=== PATIENT | male | born 1980 | race Asian ===

== ENCOUNTER 2020-02-04 00:43 | Emergency (ER) | payer OTHER ==
[~2020-02-04] VITALS: Ht 175.3 cm; Wt 83.9 kg
[2020-02-04 01:01] VITALS: BP 166/128
--- NOTE | 2020-02-05 22:57 | NUR ---
RECEIVED CALL FROM LAB REGARDING COVID TEST. PT NEGATIVE.
== END 2020-02-04 02:02 | disposition home or self-care (01) ==
LOC: ER 00:47
DX: Z03.818 Encounter for observation for suspected exposure to other biological agents ruled out (principal)
CPT/HCPCS: 99283; C9803; U0003

== ENCOUNTER 2020-02-12 00:47 | Emergency (ER) | payer OTHER ==
[~2020-02-12] VITALS: Ht 175.3 cm; Wt 85.7 kg
[2020-02-12 00:49] VITALS: BP 111/65
== END 2020-02-12 01:06 | disposition home or self-care (01) ==
LOC: ER 00:50
DX: Z11.59 Encounter for screening for other viral diseases (principal)
CPT/HCPCS: 99283; C9803; U0003

== ENCOUNTER 2020-02-26 01:03 | Emergency (ER) | payer OTHER ==
[~2020-02-26] VITALS: Ht 175.3 cm; Wt 85.7 kg
[2020-02-26 01:11] VITALS: BP 139/88
--- NOTE | 2020-02-26 02:25 | NUR ---
COVID SWAB SENT TO LAB
== END 2020-02-26 01:11 | disposition home or self-care (01) ==
LOC: ER 01:04
DX: Z03.818 Encounter for observation for suspected exposure to other biological agents ruled out (principal)
CPT/HCPCS: 99283; C9803; U0003

== ENCOUNTER 2020-03-04 02:45 | Emergency (ER) | payer OTHER ==
[~2020-03-04] VITALS: Ht 175.3 cm; Wt 85.7 kg
[2020-03-04 02:45] VITALS: BP 132/64
--- NOTE | 2020-03-04 02:55 | NUR ---
Patient discharged to home in stable condition. Written and verbal after care instructions given. Patient verbalizes understanding of instruction.
--- NOTE | 2020-03-04 02:55 | NUR ---
CERVANTES VIRUS SWAB COLLECTED AND SENT TO LAB.
== END 2020-03-04 02:56 | disposition home or self-care (01) ==
LOC: ER 02:45
DX: Z11.59 Encounter for screening for other viral diseases (principal)
CPT/HCPCS: 99283; C9803; U0003

== ENCOUNTER 2020-03-12 00:56 | Emergency (ER) | payer OTHER ==
[~2020-03-12] VITALS: Ht 175.3 cm; Wt 85.7 kg
[2020-03-12 00:58] VITALS: BP 119/62
--- NOTE | 2020-03-12 01:04 | NUR ---
COVID SWAB COLLECTED AND SENT TO LAB
== END 2020-03-12 01:10 | disposition home or self-care (01) ==
LOC: ER 00:56
DX: Z03.818 Encounter for observation for suspected exposure to other biological agents ruled out (principal)
CPT/HCPCS: 99283; C9803; U0003

== ENCOUNTER 2020-03-18 00:39 | Emergency (ER) | payer OTHER ==
[~2020-03-18] VITALS: Ht 175.3 cm; Wt 85.7 kg
[2020-03-18 00:42] VITALS: BP 141/85
--- NOTE | 2020-03-18 01:03 | NUR ---
COVID TEST SENT TO LAB
== END 2020-03-18 01:03 | disposition home or self-care (01) ==
LOC: ER 00:40
DX: R03.0 Elevated blood-pressure reading, without diagnosis of hypertension (principal)
CPT/HCPCS: 99283; C9803; U0003

== ENCOUNTER 2020-04-01 01:23 | Emergency (ER) | payer OTHER ==
[~2020-04-01] VITALS: Ht 175.3 cm; Wt 85.7 kg
[2020-04-01 01:26] VITALS: BP 138/88
--- NOTE | 2020-04-01 01:50 | NUR ---
COVID SWAB DONE AND SENT TO LAB.
== END 2020-04-01 02:15 | disposition home or self-care (01) ==
LOC: ER 01:25
DX: Z20.828 Contact with and (suspected) exposure to other viral communicable diseases (principal)
CPT/HCPCS: 99283; C9803; U0003

== ENCOUNTER 2020-04-30 02:26 | Emergency (ER) | payer OTHER | END 2020-04-30 02:53 | disposition home or self-care (01) | DX: Z20.828 Contact with and (suspected) exposure to other viral communicable diseases (principal) | CPT/HCPCS: 99283; C9803; U0003 ==

== ENCOUNTER 2020-05-07 01:30 | Emergency (ER) | payer OTHER ==
[~2020-05-07] VITALS: Ht 175.3 cm; Wt 85.7 kg
[2020-05-07 01:31] VITALS: BP 135/61
== END 2020-05-07 02:45 | disposition home or self-care (01) ==
LOC: ER 01:31
DX: Z20.828 Contact with and (suspected) exposure to other viral communicable diseases (principal)
CPT/HCPCS: 99283; C9803; U0003

== ENCOUNTER 2020-05-13 00:24 | Emergency (ER) | payer OTHER ==
[~2020-05-13] VITALS: Ht 175.3 cm; Wt 85.7 kg
[2020-05-13 00:31] VITALS: BP 132/61
== END 2020-05-13 01:25 | disposition home or self-care (01) ==
LOC: ER 00:30
DX: Z20.828 Contact with and (suspected) exposure to other viral communicable diseases (principal)
CPT/HCPCS: 99283; C9803; U0003

== ENCOUNTER 2020-05-20 01:01 | Emergency (ER) | payer OTHER ==
[~2020-05-20] VITALS: Ht 175.3 cm; Wt 85.7 kg
[2020-05-20 01:06] VITALS: BP 128/74
== END 2020-05-20 01:17 | disposition home or self-care (01) ==
LOC: ER 01:02
DX: Z20.828 Contact with and (suspected) exposure to other viral communicable diseases (principal)
CPT/HCPCS: 99283; C9803; U0003

== ENCOUNTER 2020-05-27 00:39 | Emergency (ER) | payer OTHER ==
[~2020-05-27] VITALS: Ht 175.3 cm; Wt 85.7 kg
[2020-05-27 00:40] VITALS: BP 132/64
--- NOTE | 2020-05-27 00:54 | NUR ---
covid swab sent to lab
== END 2020-05-27 00:55 | disposition home or self-care (01) ==
LOC: ER 00:39
DX: Z20.828 Contact with and (suspected) exposure to other viral communicable diseases (principal)
CPT/HCPCS: 99283; C9803; U0003

== ENCOUNTER 2020-06-09 22:57 | Emergency (ER) | payer OTHER ==
[~2020-06-09] VITALS: Ht 175.3 cm; Wt 85.7 kg
[2020-06-09 23:04] VITALS: BP 128/81
--- NOTE | 2020-06-10 20:54 | NUR ---
LAB CALLED REGARDING NEGATIVE COVID RESULT.
== END 2020-06-09 23:15 | disposition home or self-care (01) ==
LOC: ER 22:59
DX: Z20.828 Contact with and (suspected) exposure to other viral communicable diseases (principal)
CPT/HCPCS: 99283; C9803; U0003

== ENCOUNTER 2020-06-17 23:30 | Emergency (ER) | payer OTHER ==
[~2020-06-17] VITALS: Ht 170.2 cm; Wt 84.8 kg
[2020-06-17 23:32] VITALS: BP 122/72
== END 2020-06-18 00:23 | disposition home or self-care (01) ==
LOC: ER 23:31
DX: Z20.828 Contact with and (suspected) exposure to other viral communicable diseases (principal)
CPT/HCPCS: 99283; C9803; U0003

== ENCOUNTER 2020-06-24 02:36 | Emergency (ER) | payer OTHER ==
[~2020-06-24] VITALS: Ht 170.2 cm; Wt 84.8 kg
[2020-06-24 02:38] VITALS: BP 138/79
== END 2020-06-24 02:51 | disposition home or self-care (01) ==
LOC: ER 02:37
DX: Z20.828 Contact with and (suspected) exposure to other viral communicable diseases (principal)
CPT/HCPCS: 99283; C9803; U0003

== ENCOUNTER 2020-07-01 02:01 | Emergency (ER) | payer OTHER ==
[~2020-07-01] VITALS: Ht 170.2 cm; Wt 84.8 kg
[2020-07-01 02:01] VITALS: BP 132/65
== END 2020-07-01 02:28 | disposition home or self-care (01) ==
LOC: ER 02:02
DX: Z20.828 Contact with and (suspected) exposure to other viral communicable diseases (principal)
CPT/HCPCS: 99283; C9803; U0003

== ENCOUNTER 2020-07-08 00:17 | Emergency (ER) | payer OTHER ==
[~2020-07-08] VITALS: Ht 170.2 cm; Wt 84.8 kg
[2020-07-08 00:19] VITALS: BP 128/64
== END 2020-07-08 00:43 | disposition home or self-care (01) ==
LOC: ER 00:19
DX: Z20.828 Contact with and (suspected) exposure to other viral communicable diseases (principal)
CPT/HCPCS: 99283; C9803; U0003

== ENCOUNTER 2020-07-16 02:15 | Emergency (ER) | payer OTHER ==
[~2020-07-16] VITALS: Ht 170.2 cm; Wt 84.8 kg
[2020-07-16 02:20] VITALS: BP 128/84
--- NOTE | 2020-07-16 02:29 | NUR ---
Patient discharged to home in stable condition. Written and verbal after care instructions given. Patient verbalizes understanding of instruction. pt. ambulatory with a steady gait
== END 2020-07-16 02:30 | disposition home or self-care (01) ==
LOC: ER 02:15
DX: Z20.828 Contact with and (suspected) exposure to other viral communicable diseases (principal)
CPT/HCPCS: 99283; C9803; U0003

== ENCOUNTER 2020-07-22 04:07 | Emergency (ER) | payer OTHER ==
[~2020-07-22] VITALS: Ht 175.3 cm; Wt 86.2 kg
[2020-07-22 04:15] VITALS: BP 131/75
--- NOTE | 2020-07-22 22:39 | NUR ---
LAB CALLED REGARDING NEGATIVE COVID RESULT
== END 2020-07-22 04:18 | disposition home or self-care (01) ==
LOC: ER 04:11
DX: Z20.828 Contact with and (suspected) exposure to other viral communicable diseases (principal)
CPT/HCPCS: 99283; C9803; U0003

== ENCOUNTER 2020-07-28 01:23 | Emergency (ER) | payer OTHER ==
[~2020-07-28] VITALS: Ht 175.3 cm; Wt 86.2 kg
[2020-07-28 01:27] VITALS: BP 128/79
--- NOTE | 2020-07-28 01:46 | NUR ---
COVID SWAB SAMPLE COLLECTED AND SENT TO THE LAB.
== END 2020-07-28 01:52 | disposition home or self-care (01) ==
LOC: ER 01:27
DX: Z20.828 Contact with and (suspected) exposure to other viral communicable diseases (principal)
CPT/HCPCS: 99283; C9803; U0003

== ENCOUNTER 2020-07-30 02:57 | Emergency (ER) | payer OTHER ==
[~2020-07-30] VITALS: Ht 175.3 cm; Wt 86.2 kg
[2020-07-30 03:01] VITALS: BP 121/63
== END 2020-07-30 03:47 | disposition home or self-care (01) ==
LOC: ER 03:02
DX: Z20.828 Contact with and (suspected) exposure to other viral communicable diseases (principal)
CPT/HCPCS: 99283; C9803; U0003

== ENCOUNTER 2020-08-04 01:37 | Emergency (ER) | payer OTHER ==
[~2020-08-04] VITALS: Ht 175.3 cm; Wt 86.2 kg
[2020-08-04 01:44] VITALS: BP 137/80
== END 2020-08-04 01:58 | disposition home or self-care (01) ==
LOC: ER 01:50
DX: Z20.828 Contact with and (suspected) exposure to other viral communicable diseases (principal)
CPT/HCPCS: 99283; C9803; U0003

== ENCOUNTER 2020-08-06 00:01 | Emergency (ER) | payer OTHER ==
[~2020-08-06] VITALS: Ht 175.3 cm; Wt 86.2 kg
[2020-08-06 00:06] VITALS: BP 133/84
== END 2020-08-06 00:33 | disposition home or self-care (01) ==
LOC: ER 00:08
DX: Z20.828 Contact with and (suspected) exposure to other viral communicable diseases (principal)
CPT/HCPCS: 99283; C9803; U0003

== ENCOUNTER 2020-08-11 05:26 | Emergency (ER) | payer OTHER ==
[~2020-08-11] VITALS: Ht 175.3 cm; Wt 86.2 kg
[2020-08-11 05:30] VITALS: BP 118/77
== END 2020-08-11 05:47 | disposition home or self-care (01) ==
LOC: ER 05:27
DX: Z20.828 Contact with and (suspected) exposure to other viral communicable diseases (principal)
CPT/HCPCS: 99283; C9803; U0003

== ENCOUNTER 2020-08-13 01:13 | Emergency (ER) | payer OTHER ==
[~2020-08-13] VITALS: Ht 175.3 cm; Wt 86.2 kg
[2020-08-13 01:16] VITALS: BP 132/64
== END 2020-08-13 01:33 | disposition home or self-care (01) ==
LOC: ER 01:17
DX: Z20.822 Contact with and (suspected) exposure to COVID-19 (principal)
CPT/HCPCS: 99283; C9803; U0003

== ENCOUNTER 2020-08-18 03:12 | Emergency (ER) | payer OTHER ==
[~2020-08-18] VITALS: Ht 170.2 cm; Wt 86.2 kg
[2020-08-18 03:14] VITALS: BP 119/68
== END 2020-08-18 03:36 | disposition home or self-care (01) ==
LOC: ER 03:17
DX: Z20.822 Contact with and (suspected) exposure to COVID-19 (principal)
CPT/HCPCS: 99283; C9803; U0003

== ENCOUNTER 2020-08-20 01:26 | Emergency (ER) | payer OTHER ==
[~2020-08-20] VITALS: Ht 170.2 cm; Wt 86.2 kg
[2020-08-20 01:29] VITALS: BP 124/65
== END 2020-08-20 01:49 | disposition home or self-care (01) ==
LOC: ER 01:30
DX: Z20.822 Contact with and (suspected) exposure to COVID-19 (principal)
CPT/HCPCS: 99283; C9803; U0003

== ENCOUNTER 2020-08-25 00:55 | Emergency (ER) | payer OTHER ==
[~2020-08-25] VITALS: Ht 175.3 cm; Wt 86.2 kg
[2020-08-25 00:55] VITALS: BP 122/65
== END 2020-08-25 01:31 | disposition home or self-care (01) ==
LOC: ER 01:07
DX: Z20.822 Contact with and (suspected) exposure to COVID-19 (principal)
CPT/HCPCS: 99283; C9803; U0003

== ENCOUNTER 2020-08-26 23:47 | Emergency (ER) | payer OTHER ==
[~2020-08-26] VITALS: Ht 175.3 cm; Wt 86.2 kg
[2020-08-27] VITALS: BP 134/67
== END 2020-08-27 00:25 | disposition home or self-care (01) ==
LOC: ER 23:51
DX: Z20.822 Contact with and (suspected) exposure to COVID-19 (principal)
CPT/HCPCS: 99283; C9803; U0003

== ENCOUNTER 2020-09-01 01:08 | Emergency (ER) | payer OTHER ==
[~2020-09-01] VITALS: Ht 162.6 cm; Wt 67.6 kg
[2020-09-01 01:08] VITALS: BP 124/71
== END 2020-09-01 01:51 | disposition home or self-care (01) ==
LOC: ER 01:13
DX: Z20.822 Contact with and (suspected) exposure to COVID-19 (principal)
CPT/HCPCS: 99283; C9803; U0003

== ENCOUNTER 2020-09-08 02:36 | Emergency (ER) | payer OTHER ==
[~2020-09-08] VITALS: Ht 175.3 cm; Wt 86.2 kg
[2020-09-08 02:36] VITALS: BP 131/75
== END 2020-09-08 03:12 | disposition home or self-care (01) ==
LOC: ER 02:39
DX: Z20.822 Contact with and (suspected) exposure to COVID-19 (principal)
CPT/HCPCS: 99283; C9803; U0003

== ENCOUNTER 2020-09-10 00:36 | Emergency (ER) | payer OTHER ==
[~2020-09-10] VITALS: Ht 177.8 cm; Wt 74.4 kg
[2020-09-10 00:39] VITALS: BP 118/72
== END 2020-09-10 01:42 | disposition home or self-care (01) ==
LOC: ER 00:41
DX: Z20.822 Contact with and (suspected) exposure to COVID-19 (principal)
CPT/HCPCS: 99283; C9803; U0003

== ENCOUNTER 2020-09-16 00:39 | Emergency (ER) | payer OTHER ==
[~2020-09-16] VITALS: Ht 175.3 cm; Wt 86.2 kg
[2020-09-16 00:44] VITALS: BP 129/88
== END 2020-09-16 01:17 | disposition home or self-care (01) ==
LOC: ER 00:44
DX: Z20.822 Contact with and (suspected) exposure to COVID-19 (principal)
CPT/HCPCS: 99283; C9803; U0003

== ENCOUNTER 2020-09-22 01:26 | Emergency (ER) | payer OTHER ==
[~2020-09-22] VITALS: Ht 175.3 cm; Wt 86.2 kg
[2020-09-22 01:26] VITALS: BP 131/75
== END 2020-09-22 04:52 | disposition home or self-care (01) ==
LOC: ER 01:30
DX: Z20.822 Contact with and (suspected) exposure to COVID-19 (principal)
CPT/HCPCS: 99283; C9803; U0003

== ENCOUNTER 2020-09-24 00:31 | Emergency (ER) | payer OTHER ==
[~2020-09-24] VITALS: Ht 175.3 cm; Wt 86.2 kg
[2020-09-24 00:35] VITALS: BP 125/67
== END 2020-09-24 01:19 | disposition home or self-care (01) ==
LOC: ER 00:37
DX: Z20.822 Contact with and (suspected) exposure to COVID-19 (principal)
CPT/HCPCS: 99283; C9803; U0003

== ENCOUNTER 2020-09-29 00:36 | Emergency (ER) | payer OTHER ==
[~2020-09-29] VITALS: Ht 175.3 cm; Wt 86.2 kg
[2020-09-29 00:40] VITALS: BP 122/82
== END 2020-09-29 01:15 | disposition home or self-care (01) ==
LOC: ER 00:41
DX: Z20.822 Contact with and (suspected) exposure to COVID-19 (principal)
CPT/HCPCS: 99283; C9803; U0003

== ENCOUNTER 2020-10-07 01:05 | Emergency (ER) | payer OTHER ==
[~2020-10-07] VITALS: Ht 175.3 cm; Wt 87.1 kg
[2020-10-07 01:21] VITALS: BP 121/71
== END 2020-10-07 02:04 | disposition home or self-care (01) ==
LOC: ER 01:14
DX: Z20.822 Contact with and (suspected) exposure to COVID-19 (principal)
CPT/HCPCS: 99283; C9803; U0003

== ENCOUNTER 2020-10-13 00:36 | Emergency (ER) | payer OTHER ==
[~2020-10-13] VITALS: Ht 175.3 cm; Wt 87.1 kg
[2020-10-13 00:36] VITALS: BP 121/68
== END 2020-10-13 00:45 | disposition home or self-care (01) ==
LOC: ER 00:39
DX: Z20.822 Contact with and (suspected) exposure to COVID-19 (principal)
CPT/HCPCS: 99283; C9803; U0003

== ENCOUNTER 2020-10-20 01:05 | Emergency (ER) | payer OTHER ==
[~2020-10-20] VITALS: Ht 175.3 cm; Wt 87.1 kg
[2020-10-20 01:06] VITALS: BP 128/69
== END 2020-10-20 02:39 | disposition home or self-care (01) ==
LOC: ER 01:10
DX: Z20.822 Contact with and (suspected) exposure to COVID-19 (principal)
CPT/HCPCS: 99283; C9803; U0003

== ENCOUNTER 2020-10-26 23:16 | Emergency (ER) | payer OTHER ==
[~2020-10-26] VITALS: Ht 175.3 cm; Wt 87.1 kg
[2020-10-26 23:17] VITALS: BP 134/79
== END 2020-10-26 23:50 | disposition home or self-care (01) ==
LOC: ER 23:17
DX: Z20.822 Contact with and (suspected) exposure to COVID-19 (principal)
CPT/HCPCS: 99283; C9803; U0003

== ENCOUNTER 2020-11-03 02:26 | Emergency (ER) | payer OTHER ==
[~2020-11-03] VITALS: Ht 175.3 cm; Wt 87.1 kg
[2020-11-03 02:34] VITALS: BP 141/80
== END 2020-11-03 02:58 | disposition home or self-care (01) ==
LOC: ER 02:31
DX: Z20.822 Contact with and (suspected) exposure to COVID-19 (principal)
CPT/HCPCS: 99283; C9803; U0003

== ENCOUNTER 2020-11-10 02:49 | Emergency (ER) | payer OTHER ==
[~2020-11-10] VITALS: Ht 175.3 cm; Wt 88.5 kg
[2020-11-10 02:55] VITALS: BP 124/76
== END 2020-11-10 03:15 | disposition home or self-care (01) ==
LOC: ER 02:54
DX: Z20.822 Contact with and (suspected) exposure to COVID-19 (principal)
CPT/HCPCS: 99283; C9803; U0003

== ENCOUNTER 2020-11-17 02:34 | Emergency (ER) | payer OTHER ==
[~2020-11-17] VITALS: Ht 175.3 cm; Wt 86.2 kg
[2020-11-17 02:40] VITALS: BP 134/82
== END 2020-11-17 03:20 | disposition home or self-care (01) ==
LOC: ER 02:40
DX: Z20.822 Contact with and (suspected) exposure to COVID-19 (principal)
CPT/HCPCS: 99283; C9803; U0003

== ENCOUNTER 2020-11-25 01:03 | Emergency (ER) | payer OTHER ==
[~2020-11-25] VITALS: Ht 175.3 cm; Wt 78.0 kg
[2020-11-25 01:15] VITALS: BP 123/78
== END 2020-11-25 02:09 | disposition home or self-care (01) ==
LOC: ER 01:08
DX: Z20.822 Contact with and (suspected) exposure to COVID-19 (principal)
CPT/HCPCS: 99283; C9803; U0003

== ENCOUNTER 2020-12-08 01:40 | Emergency (ER) | payer OTHER ==
[~2020-12-08] VITALS: Ht 175.3 cm; Wt 78.0 kg
[2020-12-08 01:40] VITALS: BP 129/60
== END 2020-12-08 02:26 | disposition home or self-care (01) ==
LOC: ER 01:41
DX: Z20.822 Contact with and (suspected) exposure to COVID-19 (principal)
CPT/HCPCS: 99283; C9803; U0003

== ENCOUNTER 2020-12-14 23:43 | Emergency (ER) | payer OTHER ==
[~2020-12-14] VITALS: Ht 175.3 cm; Wt 78.0 kg
[2020-12-14 23:48] VITALS: BP 131/85
== END 2020-12-15 00:35 | disposition home or self-care (01) ==
LOC: ER 23:47
DX: Z20.822 Contact with and (suspected) exposure to COVID-19 (principal)
CPT/HCPCS: 99283; C9803; U0003

== ENCOUNTER 2020-12-22 00:31 | Emergency (ER) | payer OTHER ==
[~2020-12-22] VITALS: Ht 175.3 cm; Wt 78.0 kg
[2020-12-22 00:31] VITALS: BP 125/70
== END 2020-12-22 01:58 | disposition home or self-care (01) ==
LOC: ER 00:35
DX: Z20.822 Contact with and (suspected) exposure to COVID-19 (principal)
CPT/HCPCS: 99283; C9803; U0003

== ENCOUNTER 2020-12-29 02:46 | Emergency (ER) | payer OTHER ==
[~2020-12-29] VITALS: Ht 175.3 cm; Wt 78.0 kg
[2020-12-29 03:00] VITALS: BP 129/88
== END 2020-12-29 03:48 | disposition home or self-care (01) ==
LOC: ER 02:54
DX: Z20.822 Contact with and (suspected) exposure to COVID-19 (principal)
CPT/HCPCS: 99283; C9803; U0003

== ENCOUNTER 2021-01-05 03:24 | Emergency (ER) | payer OTHER ==
[~2021-01-05] VITALS: Ht 175.3 cm; Wt 86.2 kg
[2021-01-05 03:36] VITALS: BP 115/71
== END 2021-01-05 03:56 | disposition home or self-care (01) ==
LOC: ER 03:27
DX: Z20.822 Contact with and (suspected) exposure to COVID-19 (principal)
CPT/HCPCS: 99283; C9803; U0003

== ENCOUNTER 2021-01-13 00:10 | Emergency (ER) | payer OTHER ==
[~2021-01-13] VITALS: Ht 175.3 cm; Wt 86.2 kg
[2021-01-13 00:19] VITALS: BP 119/84
== END 2021-01-13 00:25 | disposition home or self-care (01) ==
LOC: ER 00:11
DX: Z20.822 Contact with and (suspected) exposure to COVID-19 (principal)
CPT/HCPCS: 99283; C9803; U0003

== ENCOUNTER 2021-01-19 02:26 | Emergency (ER) | payer OTHER ==
[~2021-01-19] VITALS: Ht 175.3 cm; Wt 86.2 kg
[2021-01-19 02:31] VITALS: BP 125/67
== END 2021-01-19 03:26 | disposition home or self-care (01) ==
LOC: ER 02:33
DX: Z20.822 Contact with and (suspected) exposure to COVID-19 (principal)
CPT/HCPCS: 99283; C9803; U0003

== ENCOUNTER 2021-04-20 23:01 | Emergency (ER) | payer OTHER ==
[~2021-04-20] VITALS: Ht 175.3 cm; Wt 86.2 kg
[2021-04-20 23:03] VITALS: BP 132/84
== END 2021-04-20 23:31 | disposition home or self-care (01) ==
LOC: ER 23:02
DX: Z20.822 Contact with and (suspected) exposure to COVID-19 (principal)
CPT/HCPCS: 99283; C9803; U0003

== ENCOUNTER 2021-04-27 01:56 | Emergency (ER) | payer OTHER ==
[~2021-04-27] VITALS: Ht 175.3 cm; Wt 86.2 kg
[2021-04-27 01:59] VITALS: BP 133/68
== END 2021-04-27 02:21 | disposition home or self-care (01) ==
LOC: ER 02:01
DX: Z20.822 Contact with and (suspected) exposure to COVID-19 (principal)
CPT/HCPCS: 99283; C9803; U0003